=== PATIENT | male | born 1965 | race Hispanic/Latino ===

== ENCOUNTER → 2018-11-10 | Day surgery (SDC) | payer OTHER ==
[~2018-11-10] MED LIST: CYCLOBENZAPRINE10 MG PO; FENTANYL CITRATE/PF 100MCG/2 ML INJ ONE; GLUCAGON FOR INJ 1 MG VIAL ONE; MIDAZOLAM HCL 2 MG/2 ML VIAL ONE; NORCO 10-325 T1 EACH PO; OMEPRAZOLE40 MG PO; PANTOPRAZOLE SO40 MG PO; POTASSIUM PO; PROPOFOL IV EMULSION 10 MG/ML 50 ML VIAL ONE; VITAMIN B-121000 MCG PO
--- OUTSIDE RECORDS SUMMARY | 2018-11-10 06:25 | XMS REPORT | Continuity of Care Document ---
Author Author [facility] Interface Address Unknown Phone Unavailable Problems Problem Status Onset Date Classification Date Reported Comments Source SPONDYLOSIS, RADICULOPATHY LUMBAR REGION Active 02/05/2018 [facility] LBP Active [facility] Medications Medication Details Route Status Patient Instructions Ordering Provider Order Date Source {21 (Methylprednisolone 4 MG Oral Tablet [Medrol]) } Pack [Medrol Dosepak] See Instructions, PO, Take by mouth as directed on label., # 1 Pack, 0 Refill(s), given to patient Active 03/07/2018 [facility] clindamycin 150 mg oral capsule 150 mg=1 cap, PO, Q6H, X 5 day, # 20 cap, 0 Refill(s), given to patient Active 03/07/2018 [facility] cyclobenzaprine 10 mg oral tablet 10 mg=1 tab, PO, TID, PRN Spasm, 0 Refill(s) Active 03/07/2018 [facility] Acetaminophen 325 MG / Hydrocodone Bitartrate 10 MG Oral Tablet [Darwin 10/325] 1 tab, PO, Q4H, PRN Pain Score 1-3, 0 Refill(s) Active 03/07/2018 [facility] Protonix 40 mg, 1 tab, Route: PO, Drug form: ECTAB, Daily, Start date: 03/07/18 9:00:00 CDT, Duration: 30 day, Stop date: 04/05/18 9:00:00 CDTNotes: Tablet should not be chewed or crushed. (Same as: Protonix) Inactive 03/07/2018 [facility] Dexamethasone 4 mg, 1 mL, Route: IVP, Drug form: INJ, Q12H, Dosing Weight 95.455, kg, Start date: 03/07/18 0:00:00 CDT, Duration: 30 day, Stop date: 04/05/18 12:00:00 CDTNotes: Concentration: 4mg/ml Inactive 03/07/2018 [facility] Lipitor 10 mg, 1 tab, Route: PO, Drug form: TAB, Bedtime, Start date: 03/06/18 21:00:00 CDT, Duration: 30 day, Stop date: 04/04/18 21:00:00 CDTNotes: (Same As: Lipitor) No Longer Active 03/07/2018 [facility] ketOROLAC 30 mg/mL injectable solution 30 mg, 1 mL, Route: IV, Drug form: INJ, Q6H, Dosing Weight 95.455, kg, Start date: 03/06/18 21:00:00 CDT, Duration: 1 day, Stop date: 03/07/18 15:00:00 CDT No Longer Active 03/07/2018 [facility] Lovastatin 20 mg, Route: PO, Bedtime, Dosing Weight 95.455, kg, Start date: 03/06/18 21:00:00 CDT, Duration: 30 day, Stop date: 04/04/18 21:00:00 CDT Inactive 03/07/2018 [facility] Cefazolin 2 gm, 20 mL, Route: IVP, Drug form: SOLN, Q8H, Dosing Weight 95.455, kg, Start date: 03/06/18 20:00:00 CDT, Duration: 24 hr, Stop date: 03/07/18 12:00:00 CDT, ABX Indication: Surgical ProphylaxisNotes: (Same as Ancef) No Longer Active 03/07/2018 [facility] Docusate Sodium 100 MG Oral Capsule [Colace] 100 mg, 1 cap, Route: PO, Drug form: CAP, BID, Dosing Weight 95.455, kg, Start date: 03/06/18 17:00:00 CDT, Duration: 30 day, Stop date: 04/05/18 9:00:00 CDTNotes: (Same as: Colace) (Do Not Crush) No Longer Active 03/06/2018 [facility] Fentanyl 50 microgram, Route: IV, Drug form: INJ, PRN, Dosing Weight 95.455, kg, PRN Pain Score 7-10, Post-Op PACU, Start date: 03/06/18 14:41:00 CDT, Duration: 30 day, Stop date: 04/05/18 14:40:00 CDT, Pedia tric Dosing; For procedure; > 50 kg Inactive 03/06/2018 [facility] Ondansetron 4 mg, Route: IVP, ONCE, Dosing Weight 95.455, kg, PRN Nausea & Vomiting, Start date: 03/06/18 14:41:00 CDT Inactive 03/06/2018 [facility] Naloxone 0.4 mg, Route: IVP, Q2MIN, Dosing Weight 95.455, kg, PRN Narcotic Reversal, Start date: 03/06/18 14:41:00 CDT, Duration: 8 doses or times, Stop date: Limited # of times Inactive 03/06/2018 [facility] Hydromorphone 0.5 mg, Route: IVP, Q5Min, Dosing Weight 95.455, kg, PRN Pain Score 7-10, Start date: 03/06/18 14:41:00 CDT, Duration: 4 doses or times, Stop date: Limited # of times Inactive 03/06/2018 [facility] Flumazenil 0.2 mg, Route: IVP, PRN, Dosing Weight 95.455, kg, PRN Benzodiazepine Reversal, Initial dose, Start date: 03/06/18 14:41:00 CDT, Duration: 30 day, Stop date: 04/05/18 14:40:00 CDT Inactive 03/06/2018 [facility] Oxycodone 5 mg, Route: PO, Drug form: TAB, Q4H, Dosing Weight 95.455, kg, PRN Pain Score 4-6, Start date: 03/06/18 14:41:00 CDT, Duration: 30 day, Stop date: 04/05/18 14:40:00 CDT Inactive 03/06/2018 [facility] neostigmine (ANES) Route: IV, Drug form: INJ, ONCE, Stop date: 03/06/18 14:36:00 CDT Inactive 03/06/2018 [facility] glycopyrrolate (ANES) Route: IV, Drug form: INJ, ONCE, Stop date: 03/06/18 14:36:00 CDT Inactive 03/06/2018 [facility] normal saline 0.9% IV 1,000 mL 1,000 mL, Rate: 70 ml/hr, Infuse over: 14.3 hr, Route: IV, Dosing Weight 95.455 kg, Total Volume: 1,000, Start date: 03/06/18 13:29:00 CDT, Duration: 30 day, Stop date: 04/05/18 13:28:00 CDT, 2.11, m2 No Longer Active 03/06/2018 [facility] Acetaminophen 325 MG / Hydrocodone Bitartrate 10 MG Oral Tablet [Darwin 10/325] 1 tab, Route: PO, Drug Form: TAB, Dosing Weight 95.455, kg, Q4H, PRN Pain Score 1-3, Start date: 03/06/18 13:29:00 CDT, Duration: 30 day, Stop date: 04/05/18 13:28:00 CDTNotes: Do not exceed 4gm/day of acetaminophen. (Same as: Darwin 325/10) No Longer Active 03/06/2018 [facility] Morphine 2 mg, 0.5 mL, Route: IVP, Drug form: SOLN, Q4H, Dosing Weight 95.455, kg, PRN Pain Score 4-6, Start date: 03/06/18 13:29:00 CDT, Duration: 30 day, Stop date: 04/05/18 13:28:00 CDTNotes: (Same as:MORPhine Sulfate) No Longer Active 03/06/2018 [facility] Diphenhydramine 25 mg, 1 cap, Route: PO, Drug form: CAP, TID, Dosing Weight 95.455, kg, PRN Itching, Start date: 03/06/18 13:29:00 CDT, Duration: 30 day, Stop date: 04/05/18 13:28:00 CDTNotes: (Same as: Benadryl) No Longer Active 03/06/2018 [facility] cyclobenzaprine 10 mg, 1 tab, Route: PO, Drug form: TAB, TID, Dosing Weight 95.455, kg, PRN Spasm, Start date: 03/06/18 13:29:00 CDT, Duration: 30 day, Stop date: 04/05/18 13:28:00 CDTNotes: (Same As: Flexeril) No Longer Active 03/06/2018 [facility] Benzocaine 15 MG / Menthol 3.6 MG Lozenge [Cepacol Sore Throat Pain Relief 15/3.6] 1 lozenge, Route: PO, Drug Form: ROSA, Dosing Weight 95.455, kg, Q2H, PRN as needed for sore throat, Start date: 03/06/18 13:29:00 CDT, Duration: 30 day, Stop date: 04/05/18 13:28:00 CDT No Longer Active 03/06/2018 [facility] Ambien 10 mg, 2 tab, Route: PO, Drug form: TAB, Bedtime, Dosing Weight 95.455, kg, PRN Insomnia, Start date: 03/06/18 13:29:00 CDT, Duration: 30 day, Stop date: 04/05/18 13:28:00 CDTNotes: (Same As: Ambien) No Longer Active 03/06/2018 [facility] Zofran 4 mg, 2 mL, Route: IV, Drug form: INJ, Q8H, Dosing Weight 95.455, kg, PRN Nausea, Start date: 03/06/18 13:29:00 CDT, Duration: 30 day, Stop date: 04/05/18 13:28:00 CDTNotes: (Same as: Zofran) MEDICATION WASTE Product Size: 4 mg Product Wasted: ___ mg No Longer Active 03/06/2018 [facility] sennosides, GROUP HOME 8.6 mg, 1 tab, Route: PO, Drug Form: TAB, Dosing Weight 95.455, kg, Daily, PRN Constipation, Start date: 03/06/18 13:29:00 CDT, Duration: 30 day, Stop date: 04/05/18 13:28:00 CDTNotes: (Same as: Senokot) No Longer Active 03/06/2018 [facility] acetaminophen (ANES) Route: IV, Drug form: INJ, ONCE, Stop date: 03/06/18 13:19:00 CDT Inactive 03/06/2018 [facility] dexmedetomidine (ANES) + Sodium Chloride 0.9% IV (ANES) 50 mL Route: IV, Drug form: INJ, ONCE, Stop date: 03/06/18 13:09:00 CDT Inactive 03/06/2018 [facility] hydromorphone (ANES) Route: IV, Drug form: INJ, ONCE, Stop date: 03/06/18 13:09:00 CDT Inactive 03/06/2018 [facility] ePHEDrine (ANES) Route: IV, Drug form: INJ, ONCE, Stop date: 03/06/18 13:09:00 CDT Inactive 03/06/2018 [facility] dexamethasone (ANES) Route: IV, Drug form: INJ, ONCE, Stop date: 03/06/18 13:04:00 CDT Inactive 03/06/2018 [facility] propofol (ANES) Route: IV, Drug form: INJ, ONCE, Stop date: 03/06/18 12:59:00 CDT Inactive 03/06/2018 [facility] rocuronium (ANES) Route: IV, Drug form: INJ, ONCE, Stop date: 03/06/18 12:59:00 CDT Inactive 03/06/2018 [facility] lidocaine (ANES) Route: IV, Drug form: INJ, ONCE, Stop date: 03/06/18 12:59:00 CDT Inactive 03/06/2018 [facility] fentaNYL (ANES) Route: IV, Drug form: INJ, ONCE, Stop date: 03/06/18 12:59:00 CDT Inactive 03/06/2018 [facility] ceFAZolin (ANES) Route: IV, Drug form: INJ, ONCE, Stop date: 03/06/18 12:54:00 CDT Inactive 03/06/2018 [facility] Lactated Ringers Injection IV (ANES) 1000 mL Route: IV, Total Volume: 1,000, Start date: 03/06/18 12:05:00 CDT, Stop date: 03/06/18 13:05:00 CDT Inactive 03/06/2018 [facility] Vitamin B12 0 Refill(s) Active 03/06/2018 [facility] gabapentin 300 mg, 1 cap, Route: PO, Drug form: CAP, Daily, Dosing Weight 95.455, kg, Start date: 03/06/18 9:00:00 CDT, Duration: 30 day, Stop date: 04/04/18 9:00:00 CDTNotes: (Same as: Neurontin) No Longer Active 03/06/2018 [facility] Nexium 20 mg, Route: PO, Daily, Dosing Weight 95.455, kg, Start date: 03/06/18 9:00:00 CDT, Duration: 30 day, Stop date: 04/04/18 9:00:00 CDT Inactive 03/06/2018 [facility] Nexium PO, Daily, 0 Refill(s) Active 02/26/2018 [facility] Lovastatin 20 mg, PO, Bedtime, 0 Refill(s) Active 02/26/2018 [facility] Tramadol 50 mg, PO, Q4-6H, PRN Pain, # 20 tab, 0 Refill(s) No Longer Active 02/26/2018 [facility] gabapentin 300 mg, PO, Daily, 0 Refill(s) Active 02/26/2018 [facility] Allergies, Adverse Reactions, Alerts Substance Category Reaction Severity Reaction type Status Date Reported Comments Source Immunizations Immunization Date Given Site Status Last Updated Comments Source pneumococcal 23-valent vaccine 03/07/2018 Right deltoid completed Nicanor [facility] Results Order Name Results Value Reference Range Date Interpretation Comments Source BLOOD BANK RESULTS Antibody Scrn Negative (03/06/18 9:14 AM) 03/06/2018 [facility] BLOOD BANK RESULTS ABO/Rh O POS 03/06/2018 [facility] CHEM PANEL eGFR 102 mL/min/1.73m2 02/26/2018 Result Comment: The eGFR is calculated using the CKD-EPI formula. In most young, healthy individuals the eGFR will be >90 mL/min/1.73m2. The eGFR declines with age. An eGFR of 60-89 may be normal in some populations, particularly the elderly, for whom the CKD-EPI formula has not been extensively validated. Use of the eGFR is not recommended in the following populations: Individuals with unstable creatinine concentrations, including patients and those with serious co-morbid conditions. Patients with extremes in muscle mass or diet. The data above are obtained from the National Kidney Disease Education Program (NKDEP) which additionally recommends that when the eGFR is used in patients with extremes of body mass index for purposes of drug dosing, the eGFR should be multiplied by the estimated BMI. [facility] CHEM PANEL CO2 30 meq/L 24 - 32 02/26/2018 [facility] CHEM PANEL Calcium Lvl 9.5 mg/dL 8.5 - 10.5 02/26/2018 [facility] CHEM PANEL Glucose Lvl 79 mg/dL 70 - 99 02/26/2018 [facility] CHEM PANEL Chloride Lvl 104 meq/L 95 - 109 02/26/2018 [facility] CHEM PANEL Potassium Lvl 4.2 meq/L 3.5 - 5.1 02/26/2018 [facility] CHEM PANEL Creatinine Lvl 0.76 mg/dL 0.50 - 1.40 02/26/2018 [facility] CHEM PANEL BUN 16 mg/dL 7 - 22 02/26/2018 [facility] CHEM PANEL Sodium Lvl 143 meq/L 135 - 145 02/26/2018 [facility] CHEM PANEL AGAP 13.2 meq/L 10.0 - 20.0 02/26/2018 [facility] HEMATOLOGY INR 0.99 0.85 - 1.17 02/26/2018 [facility] HEMATOLOGY PT 13.1 s 12.0 - 14.7 02/26/2018 [facility] HEMATOLOGY PTT 28.8 s 22.9 - 35.8 02/26/2018 [facility] HEMATOLOGY RDW 13.6 % 11.5 - 14.5 02/26/2018 [facility] HEMATOLOGY Platelet 292 K/CMM 133 - 450 02/26/2018 [facility] HEMATOLOGY MPV 8.0 fL 7.4 - 10.4 02/26/2018 [facility] HEMATOLOGY MCHC 33.7 g/dL 32.0 - 36.0 02/26/2018 [facility] HEMATOLOGY MCH 32.4 pg 27.0 - 31.0 02/26/2018 [facility] HEMATOLOGY MCV 96.3 fL 80.0 - 94.0 02/26/2018 [facility] HEMATOLOGY Hct 45.1 % 42.0 - 54.0 02/26/2018 [facility] HEMATOLOGY RBC 4.68 M/CMM 4.70 - 6.10 02/26/2018 [facility] HEMATOLOGY Hgb 15.2 g/dL 14.0 - 18.0 02/26/2018 [facility] HEMATOLOGY WBC 7.3 K/CMM 3.7 - 10.4 02/26/2018 [facility] HEMATOLOGY Monocytes # 0.5 K/CMM 0.0 - 0.8 02/26/2018 [facility] HEMATOLOGY Eosinophils # 0.3 K/CMM 0.0 - 0.5 02/26/2018 [facility] HEMATOLOGY Segs-Bands # 4.3 K/CMM 1.5 - 8.1 02/26/2018 [facility] HEMATOLOGY Basophils 2.8 % 0.0 - 1.0 02/26/2018 [facility] HEMATOLOGY Lymphocytes 26.1 % 20.0 - 40.0 02/26/2018 [facility] HEMATOLOGY Eosinophils 4.6 % 0.0 - 4.0 02/26/2018 [facility] HEMATOLOGY Monocytes 6.9 % 2.0 - 12.0 02/26/2018 [facility] HEMATOLOGY Segs 59.6 % 45.0 - 75.0 02/26/2018 [facility] HEMATOLOGY Basophils # 0.2 K/CMM 0.0 - 0.2 02/26/2018 [facility] HEMATOLOGY Lymphocytes # 1.9 K/CMM 1.0 - 5.5 02/26/2018 [facility] Vital Signs Vital Sign Value Date Comments Source Temperature Oral (F) 97.5 F 03/07/2018 [facility] Heart Rate 76 03/07/2018 [facility] Respitory Rate 16 03/07/2018 [facility] Systolic (mm Hg) 111 03/07/2018 [facility] Diastolic (mm Hg) 78 03/07/2018 [facility] Systolic (mm Hg) 107 03/07/2018 [facility] Diastolic (mm Hg) 70 03/07/2018 [facility] Temperature Oral (F) 97.1 F 03/07/2018 [facility] Heart Rate 80 03/07/2018 [facility] Respitory Rate 16 03/07/2018 [facility] Systolic (mm Hg) 109 03/07/2018 [facility] Diastolic (mm Hg) 69 03/07/2018 [facility] Heart Rate 71 03/07/2018 [facility] Temperature Oral (F) 97.9 F 03/07/2018 [facility] Respitory Rate 16 03/07/2018 [facility] BMI Calculated 36.12 03/06/2018 [facility] Weight 95.455 03/06/2018 [facility] Height 162.56 cm 03/06/2018 [facility] BMI Calculated 36.12 02/27/2018 [facility] Height 162.56 cm 02/27/2018 [facility] Weight 95.455 02/27/2018 [facility] Encounters Location Location Details Encounter Type Encounter Number Reason For Visit Attending Provider ADM Date DC Date Status Source [facility] OP Therapy Patients [id number] Yuniel Betts 01/20/2015 02/19/2015 [facility] Bedded Outpatient [id number] Luis Meredith 03/06/2018 03/07/2018 [facility] Procedures Procedure Code Date Perfomer Comments Source
--- OUTSIDE RECORDS SUMMARY | 2018-11-10 06:25 | XMS REPORT | Summary of Care ---
Author Organization Unknown Address Unknown Phone Unavailable Encounter HQ Encntr_alias(FIN) [id number] Date(s): 01/20/15 - 02/18/15 [facility] Discharge Disposition: Home Physician Attendin HERVE CORDERO Physician_Referring: Yuniel Betts MD Vital Signs No data available for this section Problem List No data available for this section Allergies, Adverse Reactions, Alerts Substance Reaction Severity Status nkda Active Medications No data available for this section Results No data available for this section Immunizations No data available for this section Procedures No data available for this section Social History No data available for this section Assessment and Plan No data available for this section
--- OUTSIDE RECORDS SUMMARY | 2018-11-10 06:25 | XMS REPORT | Clinical Summary ---
Author Author [facility] Address Unknown Phone Unavailable Care Team Providers Care Inspector [employer] Name Role Phone Ridge Knutson DO PCP Allergies Not on File Medications Not on file Active Problems Not on file Social History Date Tobacco Use Types Packs/Day Years Used Never Assessed Sex Assigned at Date Recorded Not on file Industry Job Start Date Occupation Not on file Not on file Not on file Travel End Travel History Travel Start No recent travel history available. Last Filed Vital Signs Not on file Plan of Treatment Health Maintenance Due Date Last Done Comments COLON CANCER SCREENING 2013 SHINGLES VACCINES (1 of 2013 2) INFLUENZA VACCINE 05/13/2018 Results Not on fileafter 11/09/2017 Insurance Payer Benefit Subscriber ID Type Phone Address Plan / Group CIGNA CIGNA PPO xxxxxxxxx PPO CIGNA CIGNA xxxxxxxxx HMO HMO/POS Advance Directives Patient has advance care planning documents on file. For more information, gini sagastume contact: Jesus Hernandez [address] [place] [address]
--- OUTSIDE RECORDS SUMMARY | 2018-11-10 06:26 | XMS REPORT | Summary of Care ---
Author Author [facility] Organization [facility] Address Unknown Phone Unavailable Encounter MAITE Bone(TREY) [id number] Date(s): 03/06/18 - 03/07/18 [facility] [address] [employer] provided by [employer] [facility] [employer] [facility] [employer] [place] [address]- Discharge Disposition: Home or Self Care Attending Physician: Luis Meredith DO Referring Physician: Luis Meredith DO Vital Signs 1 2 3 Most recent to oldest [Reference Range]: 162.56 cm (03/06/18 8:45 AM) 162.56 cm (02/27/18 10:18 AM) Height 97.5 DegF (03/07/18 12:20 PM) 97.1 DegF (03/07/18 8:17 AM) 97.9 DegF (03/07/18 4:46 AM) Temperature Oral [96.4-99.1 DegF] 111/78 mmHg (03/07/18 12:20 PM) 107/70 mmHg (03/07/18 8:17 AM) 109/69 mmHg (03/07/18 4:46 AM) Blood Pressure [90-140/60-90 mmHg] 16 BRMIN (03/07/18 12:20 PM) 16 BRMIN (03/07/18 8:17 AM) 16 BRMIN (03/07/18 4:46 AM) Respiratory Rate [14-20 BRMIN] 76 bpm (03/07/18 12:20 PM) 80 bpm (03/07/18 8:17 AM) 71 bpm (03/07/18 4:46 AM) Peripheral Pulse Rate [60-100 bpm] 95.455 kg (03/06/18 8:45 AM) 95.455 kg (02/27/18 10:18 AM) Weight 36.12 m2 (03/06/18 8:45 AM) 36.12 m2 (02/27/18 10:18 AM) Body Mass Index Problem List No data available for this section Allergies, Adverse Reactions, Alerts Substance Reaction Severity Status [id number] Active Medications acetaminophen (ANES) Route: IV, Drug form: INJ, ONCE, Stop date: 03/06/18 13:19:00 CDT Start Date: 03/06/18 Stop Date: 03/06/18 Status: Completed Ambien 10 mg, 2 tab, Route: PO, Drug form: TAB, Bedtime, Dosing Weight 95.455, kg, PRN Insomnia, Start date: 03/06/18 13:29:00 CDT, Duration: 30 day, Stop date: 13:28:00 CDT Notes: (Same As: Ambien) Start Date: 03/06/18 Stop Date: 03/07/18 Status: Discontinued ANES flumazenil 0.2 mg, Route: IVP, PRN, Dosing Weight 95.455, kg, PRN Benzodiazepine Reversal, Initial dose, Start date: 03/06/18 14:41:00 CDT, Duration: 30 day, Stop date: 14:40:00 CDT Start Date: 03/06/18 Stop Date: 03/06/18 Status: Discontinued ANES HYDROmorphone 0.5 mg, Route: IVP, Q5Min, Dosing Weight 95.455, kg, PRN Pain Score 7-10, Start date: 03/06/18 14:41:00 CDT, Duration: 4 doses or times, Stop date: Limited # of times Start Date: 03/06/18 Stop Date: 03/06/18 Status: Discontinued ANES naloxone 0.4 mg, Route: IVP, Q2MIN, Dosing Weight 95.455, kg, PRN Narcotic Reversal, Star t date: 03/06/18 14:41:00 CDT, Duration: 8 doses or times, Stop date: Limited # of times Start Date: 03/06/18 Stop Date: 03/06/18 Status: Discontinued ANES ondansetron 4 mg, Route: IVP, ONCE, Dosing Weight 95.455, kg, PRN Nausea & Vomiting, Start date: 03/06/18 14:41:00 CDT Start Date: 03/06/18 Stop Date: 03/06/18 Status: Discontinued ANES oxyCODONE 5 mg, Route: PO, Drug form: TAB, Q4H, Dosing Weight 95.455, kg, PRN Pain Score 4 -6, Start date: 03/06/18 14:41:00 CDT, Duration: 30 day, Stop date: 04/05/18 14: 40:00 CDT Start Date: 03/06/18 Stop Date: 03/06/18 Status: Discontinued ANES oxyCODONE 10 mg, Route: PO, Drug form: TAB, Q4H, Dosing Weight 95.455, kg, PRN Pain Score 7-10, Start date: 03/06/18 14:41:00 CDT, Duration: 30 day, Stop date: 04/05/18 1 4:40:00 CDT Start Date: 03/06/18 Stop Date: 03/06/18 Status: Discontinued ceFAZolin (ANES) Route: IV, Drug form: INJ, ONCE, Stop date: 03/06/18 12:54:00 CDT Start Date: 03/06/18 Stop Date: 03/06/18 Status: Completed ceFAZolin (SCIP) 2 gm, 20 mL, Route: IVP, Drug form: SOLN, Q8H, Dosing Weight 95.455, kg, Start d ate: 03/06/18 20:00:00 CDT, Duration: 24 hr, Stop date: 03/07/18 12:00:00 CDT, A BX Indication: Surgical Prophylaxis Notes: (Same as Ancef) Start Date: 03/06/18 Stop Date: 03/07/18 Status: Completed Cepacol Sore Throat Mata Sugar Free 15 mg-3.6 mg mucous membrane lozenge 1 lozenge, Route: PO, Drug Form: ROSA, Dosing Weight 95.455, kg, Q2H, PRN as need ed for sore throat, Start date: 03/06/18 13:29:00 CDT, Duration: 30 day, Stop da te: 04/05/18 13:28:00 CDT Start Date: 03/06/18 Stop Date: 03/07/18 Status: Discontinued clindamycin 150 mg oral capsule 150 mg=1 cap, PO, Q6H, X 5 day, # 20 cap, 0 Refill(s), given to patient Start Date: 03/07/18 Stop Date: 03/12/18 Status: Ordered Colace 100 mg oral capsule 100 mg, 1 cap, Route: PO, Drug form: CAP, BID, Dosing Weight 95.455, kg, Start d ate: 03/06/18 17:00:00 CDT, Duration: 30 day, Stop date: 04/05/18 9:00:00 CDT Notes: (Same as: Colace) (Do Not Crush) Start Date: 03/06/18 Stop Date: 03/07/18 Status: Discontinued cyclobenzaprine 10 mg, 1 tab, Route: PO, Drug form: TAB, TID, Dosing Weight 95.455, kg, PRN Spas m, Start date: 03/06/18 13:29:00 CDT, Duration: 30 day, Stop date: 04/05/18 13:2 8:00 CDT Notes: (Same As: Flexeril) Start Date: 03/06/18 Stop Date: 03/07/18 Status: Discontinued cyclobenzaprine 10 mg oral tablet 10 mg=1 tab, PO, TID, PRN Spasm, 0 Refill(s) Start Date: 03/07/18 Status: Ordered dexamethasone 4 mg, 1 mL, Route: IVP, Drug form: INJ, Q12H, Dosing Weight 95.455, kg, Start da te: 03/07/18 0:00:00 CDT, Duration: 30 day, Stop date: 04/05/18 12:00:00 CDT Notes: Concentration: 4mg/ml Start Date: 03/07/18 Stop Date: 03/07/18 Status: Discontinued dexamethasone (ANES) Route: IV, Drug form: INJ, ONCE, Stop date: 03/06/18 13:04:00 CDT Start Date: 03/06/18 Stop Date: 03/06/18 Status: Completed dexmedetomidine (ANES) + Sodium Chloride 0.9% IV (ANES) 50 mL Route: IV, Drug form: INJ, ONCE, Stop date: 03/06/18 13:09:00 CDT Start Date: 03/06/18 Stop Date: 03/06/18 Status: Completed diphenhydrAMINE 25 mg, 1 cap, Route: PO, Drug form: CAP, TID, Dosing Weight 95.455, kg, PRN Itch ing, Start date: 03/06/18 13:29:00 CDT, Duration: 30 day, Stop date: 04/05/18 13 :28:00 CDT Notes: (Same as: Benadryl) Start Date: 03/06/18 Stop Date: 03/07/18 Status: Discontinued ePHEDrine (ANES) Route: IV, Drug form: INJ, ONCE, Stop date: 03/06/18 13:09:00 CDT Start Date: 03/06/18 Stop Date: 03/06/18 Status: Completed fentaNYL 50 microgram, Route: IV, Drug form: INJ, PRN, Dosing Weight 95.455, kg, PRN Pain Score 7-10, Post-Op PACU, Start date: 03/06/18 14:41:00 CDT, Duration: 30 day, Stop date: 04/05/18 14:40:00 CDT, Pediatric Dosing; For procedure; > 50 kg Start Date: 03/06/18 Stop Date: 03/06/18 Status: Discontinued fentaNYL (ANES) Route: IV, Drug form: INJ, ONCE, Stop date: 03/06/18 12:59:00 CDT Start Date: 03/06/18 Stop Date: 03/06/18 Status: Completed gabapentin 300 mg, PO, Daily, 0 Refill(s) Start Date: 02/26/18 Status: Ordered gabapentin 300 mg, 1 cap, Route: PO, Drug form: CAP, Daily, Dosing Weight 95.455, kg, Start date: 03/06/18 9:00:00 CDT, Duration: 30 day, Stop date: 04/04/18 9:00:00 CDT Notes: (Same as: Neurontin) Start Date: 03/06/18 Stop Date: 03/07/18 Status: Discontinued glycopyrrolate (ANES) Route: IV, Drug form: INJ, ONCE, Stop date: 03/06/18 14:36:00 CDT Start Date: 03/06/18 Stop Date: 03/06/18 Status: Completed hydromorphone (ANES) Route: IV, Drug form: INJ, ONCE, Stop date: 03/06/18 13:09:00 CDT Start Date: 03/06/18 Stop Date: 03/06/18 Status: Completed ketOROLAC 30 mg/mL injectable solution 30 mg, 1 mL, Route: IV, Drug form: INJ, Q6H, Dosing Weight 95.455, kg, Start fredy e: 03/06/18 21:00:00 CDT, Duration: 1 day, Stop date: 03/07/18 15:00:00 CDT Start Date: 03/06/18 Stop Date: 03/07/18 Status: Discontinued Lactated Ringers Injection IV (ANES) 1000 mL Route: IV, Total Volume: 1,000, Start date: 03/06/18 12:05:00 CDT, Stop date: 13:05:00 CDT Start Date: 03/06/18 Stop Date: 03/06/18 Status: Completed lidocaine (ANES) Route: IV, Drug form: INJ, ONCE, Stop date: 03/06/18 12:59:00 CDT Start Date: 03/06/18 Stop Date: 03/06/18 Status: Completed Lipitor 10 mg, 1 tab, Route: PO, Drug form: TAB, Bedtime, Start date: 03/06/18 21:00:00 CDT, Duration: 30 day, Stop date: 04/04/18 21:00:00 CDT Notes: (Same As: Lipitor) Start Date: 03/06/18 Stop Date: 03/07/18 Status: Discontinued lovastatin 20 mg, PO, Bedtime, 0 Refill(s) Start Date: 02/26/18 Status: Ordered lovastatin 20 mg, Route: PO, Bedtime, Dosing Weight 95.455, kg, Start date: 03/06/18 21:00: 00 CDT, Duration: 30 day, Stop date: 04/04/18 21:00:00 CDT Start Date: 03/06/18 Stop Date: 03/06/18 Status: Deleted Medrol Dosepak 4 mg oral tablet See Instructions, PO, Take by mouth as directed on label., # 1 Pack, 0 Refill(s) , given to patient Start Date: 03/07/18 Stop Date: 03/13/18 Status: Ordered morphine Sulfate 2 mg, 0.5 mL, Route: IVP, Drug form: SOLN, Q4H, Dosing Weight 95.455, kg, PRN Pa in Score 4-6, Start date: 03/06/18 13:29:00 CDT, Duration: 30 day, Stop date: 13:28:00 CDT Notes: (Same as:MORPhine Sulfate) Start Date: 03/06/18 Stop Date: 03/07/18 Status: Discontinued morphine Sulfate 4 mg, 1 mL, Route: IVP, Drug form: SOLN, Q4H, Dosing Weight 95.455, kg, PRN Pain Score 7-10, Start date: 03/06/18 13:29:00 CDT, Duration: 30 day, Stop date: 13:28:00 CDT Notes: (Same as:MORPhine Sulfate) Start Date: 03/06/18 Stop Date: 03/07/18 Status: Discontinued neostigmine (ANES) Route: IV, Drug form: INJ, ONCE, Stop date: 03/06/18 14:36:00 CDT Start Date: 03/06/18 Stop Date: 03/06/18 Status: Completed NexIUM PO, Daily, 0 Refill(s) Start Date: 02/26/18 Status: Ordered NexIUM 20 mg, Route: PO, Daily, Dosing Weight 95.455, kg, Start date: 03/06/18 9:00:00 CDT, Duration: 30 day, Stop date: 04/04/18 9:00:00 CDT Start Date: 03/06/18 Stop Date: 03/06/18 Status: Deleted Eden 10/325 oral tablet 1 tab, PO, Q4H, PRN Pain Score 1-3, 0 Refill(s) Start Date: 03/07/18 Status: Ordered Eden 10/325 oral tablet 1 tab, Route: PO, Drug Form: TAB, Dosing Weight 95.455, kg, Q4H, PRN Pain Score 1-3, Start date: 03/06/18 13:29:00 CDT, Duration: 30 day, Stop date: 04/05/18 13 :28:00 CDT Notes: Do not exceed 4gm/day of acetaminophen. (Same as: Eden 325/10) Start Date: 03/06/18 Stop Date: 03/07/18 Status: Discontinued normal saline 0.9% IV 1,000 mL 1,000 mL, Rate: 70 ml/hr, Infuse over: 14.3 hr, Route: IV, Dosing Weight 95.455 kg, Total Volume: 1,000, Start date: 03/06/18 13:29:00 CDT, Duration: 30 day, St op date: 04/05/18 13:28:00 CDT, 2.11, m2 Start Date: 03/06/18 Stop Date: 03/07/18 Status: Discontinued propofol (ANES) Route: IV, Drug form: INJ, ONCE, Stop date: 03/06/18 12:59:00 CDT Start Date: 03/06/18 Stop Date: 03/06/18 Status: Completed Protonix 40 mg, 1 tab, Route: PO, Drug form: ECTAB, Daily, Start date: 03/07/18 9:00:00 C DT, Duration: 30 day, Stop date: 04/05/18 9:00:00 CDT Notes: Tablet should not be chewed or crushed.(Same as: Protonix) Start Date: 03/07/18 Stop Date: 03/07/18 Status: Discontinued rocuronium (ANES) Route: IV, Drug form: INJ, ONCE, Stop date: 03/06/18 12:59:00 CDT Start Date: 03/06/18 Stop Date: 03/06/18 Status: Completed senna 8.6 mg, 1 tab, Route: PO, Drug Form: TAB, Dosing Weight 95.455, kg, Daily, PRN C onstipation, Start date: 03/06/18 13:29:00 CDT, Duration: 30 day, Stop date: 13:28:00 CDT Notes: (Same as: Senokot) Start Date: 03/06/18 Stop Date: 03/07/18 Status: Discontinued tramadol 50 mg, PO, Q4-6H, PRN Pain, # 20 tab, 0 Refill(s) Start Date: 02/26/18 Stop Date: 03/07/18 Status: Discontinued Vitamin B12 0 Refill(s) Start Date: 03/06/18 Status: Ordered Zofran 4 mg, 2 mL, Route: IV, Drug form: INJ, Q8H, Dosing Weight 95.455, kg, PRN Nausea , Start date: 03/06/18 13:29:00 CDT, Duration: 30 day, Stop date: 04/05/18 13:28 :00 CDT Notes: (Same as: Shaji) MEDICATION WASTE Product Size: 4 mgProduct Was augustus: ___ mg Start Date: 03/06/18 Stop Date: 03/07/18 Status: Discontinued Results BLOOD BANK RESULTS Most recent to 1 oldest [Reference Range]: ABO/Rh O POS *Unknown* (03/06/18 9:14 AM) Antibody Scrn Negative (03/06/18 9:14 AM) ELECTROLYTES Most recent to 1 oldest [Reference Range]: Sodium Lvl [135-145 143 mEq/L mEq/L] (02/26/18 3:00 PM) Potassium Lvl 4.2 mEq/L [3.5-5.1 mEq/L] (02/26/18 3:00 PM) Chloride Lvl [95-109 104 mEq/L mEq/L] (02/26/18 3:00 PM) CO2 [24-32 mEq/L] 30 mEq/L (02/26/18 3:00 PM) AGAP [10.0-20.0 13.2 mEq/L mEq/L] (02/26/18 3:00 PM) CHEM PANEL Most recent to 1 oldest [Reference Range]: Creatinine Lvl 0.76 mg/dL [0.50-1.40 mg/dL] (02/26/18 3:00 PM) eGFR 102 mL/min/1.73m2 1 *NA* (02/26/18 3:00 PM) BUN [7-22 mg/dL] 16 mg/dL (02/26/18 3:00 PM) Glucose Lvl [70-99 79 mg/dL mg/dL] (02/26/18 3:00 PM) Calcium Lvl 9.5 mg/dL [8.5-10.5 mg/dL] (02/26/18 3:00 PM) 1Result Comment: The eGFR is calculated using the [...] from the National Kidney Disease Education Program ( NKDEP) which additionally recommends that when the eGFR is used in patients with extremes of body mass index for purposes of drug dosing, the eGFR should be mul tiplied by the estimated BMI. HEMATOLOGY Most recent to 1 oldest [Reference Range]: WBC [3.7-10.4 K/CMM] 7.3 K/CMM (02/26/18 3:00 PM) RBC [4.70-6.10 4.68 M/CMM M/CMM] *LOW* (02/26/18 3:00 PM) Hgb [14.0-18.0 g/dL] 15.2 g/dL (02/26/18 3:00 PM) Hct [42.0-54.0 %] 45.1 % (02/26/18 3:00 PM) MCV [80.0-94.0 fL] 96.3 fL *HI* (02/26/18 3:00 PM) MCH [27.0-31.0 pg] 32.4 pg *HI* (02/26/18 3:00 PM) MCHC [32.0-36.0 33.7 g/dL g/dL] (02/26/18 3:00 PM) RDW [11.5-14.5 %] 13.6 % (02/26/18 3:00 PM) MPV [7.4-10.4 fL] 8.0 fL (02/26/18 3:00 PM) Platelet [133-450 292 K/CMM K/CMM] (02/26/18 3:00 PM) Segs [45.0-75.0 %] 59.6 % (02/26/18 3:00 PM) Lymphocytes 26.1 % [20.0-40.0 %] (02/26/18 3:00 PM) Monocytes [2.0-12.0 6.9 % %] (02/26/18 3:00 PM) Eosinophils [0.0-4.0 4.6 % %] *HI* (02/26/18 3:00 PM) Basophils [0.0-1.0 2.8 % %] *HI* (02/26/18 3:00 PM) Segs-Bands # 4.3 K/CMM [1.5-8.1 K/CMM] (02/26/18 3:00 PM) Lymphocytes # 1.9 K/CMM [1.0-5.5 K/CMM] (02/26/18 3:00 PM) Monocytes # [0.0-0.8 0.5 K/CMM K/CMM] (02/26/18 3:00 PM) Eosinophils # 0.3 K/CMM [0.0-0.5 K/CMM] (02/26/18 3:00 PM) Basophils # [0.0-0.2 0.2 K/CMM K/CMM] (02/26/18 3:00 PM) PT [12.0-14.7 13.1 seconds seconds] (02/26/18 3:00 PM) INR [0.85-1.17] 0.99 (02/26/18 3:00 PM) PTT [22.9-35.8 28.8 seconds seconds] (02/26/18 3:00 PM) Immunizations Given and Recorded Vaccine Date Status Refusal Reason pneumococcal 23-valent vaccine 03/07/18 Given Procedures No data available for this section Social History Social History Type Response Alcohol Past1 Smoking Status Current every day smoker; Type: Cigarettes; Exposure to Tobacco Smoke None; Cigarette Smoking Last 365 Days No; Reg Smoking Cessation Counseling No entered on: 03/06/18 1STOPPED 1 WEEK AGO PER PT Assessment and Plan Extracted from: Title: Clinical Document Author: David Sheth PA-C Date: 03/07/18 date of admit 03/06/18 date of discharge 03/07/18 dx lumbar spinal stenosis procedure b/l l1-s1 decompression hospital course- admitted for elective lumbar decompression. No complications. POD#1 met all discharge criteria and discharged to home in good condition on regular diet. Given written activity and wound care instructions. Meds- see med rec Follow up in 4 weeks. Extracted from: Title: Clinical Document Author: David Sheth PA-C Date: 03/07/18 NSGY POD#1 lumbar decompression Doing well. Ready to go home. Strength 5/5 throughotu Incision C/D/I D/c drain D/c home
--- NOTE | 2018-11-10 07:10 | NUR ---
SPIRITUAL CARE - Pre-Surgery Assessment: Pt in bed. Pt reported supportive attention from family and friends. Intervention: I provided pastoral presence, hospitality, and sympathetic listening. I acquainted pt with availability of carton stenciler while hospitalized. Outcome: Pt expressed appreciation for visit. No need for follow up indicated at this time. [facility] O: [phone] Pager: [phone] ([phone] calling [phone])
[2018-11-10 09:14] VITALS: BP 103/70
== END | disposition home or self-care (01) ==
LOC: OR 06:23
PROVIDERS: ATTEND Internal Medicine Gastroenterology
DX: K29.50 Unspecified chronic gastritis without bleeding (principal); D12.0 Benign neoplasm of cecum; D12.4 Benign neoplasm of descending colon; K21.0 Gastro-esophageal reflux disease with esophagitis; K22.70 Barrett's esophagus without dysplasia; K57.30 Diverticulosis of large intestine without perforation or abscess without bleeding; K64.8 Other hemorrhoids; K44.9 Diaphragmatic hernia without obstruction or gangrene; G89.29 Other chronic pain; F17.200 Nicotine dependence, unspecified, uncomplicated; Z01.810 Encounter for preprocedural cardiovascular examination; Z68.35 Body mass index [BMI] 35.0-35.9, adult
CPT/HCPCS: 43239; 45384; 93005; J1610; J2250; J2704; 45378